=== PATIENT | male | born 1995 | race Caucasian/White ===

== ENCOUNTER 2017-07-14 06:33 | Emergency (ER) | payer MEDICAID ==
[~2017-07-14] VITALS: Ht 180.3 cm; Wt 105.0 kg
[~2017-07-14 06:33] MED LIST: GUAN1TAB22 PO; NO MEDS; PERCT PO
[2017-07-14 06:35] VITALS: BP 147/98
[2017-07-14 06:58] LABS: GLUCOSE,POINT OF CARE 100 MG/DL (70-110)
[2017-07-14] MEDS ORDERED: MECLIZINE HCL 25 MG TABLET PO ONE (07:15)
[2017-07-14] MEDS ORDERED: ACETAMINOPHEN 500 MG TABLET PO ONE (07:15)
[2017-07-14] MEDS ORDERED: ONDANSETRON HCL 4 MG/2 ML VIAL IVP ONE (07:15)
[2017-07-14 07:33] LABS: BASOPHILS % (AUTO) 0.3 % (0.0-2.0); EOSINOPHILS % (AUTO) 0.4 % (1.0-6.0); HEMATOCRIT 44.5 % (41-53); HEMOGLOBIN 14.7 g/dL (13.5-17.5); LYMPHOCYTES # (AUTO) 1.2 K/uL (1.0-4.8); LYMPHOCYTES % (AUTO) 7.7 % (22.0-44.0); MEAN CORPUSCULAR HEMOGLOBIN 25.9 pg (26.0-34.0); MEAN CORPUSCULAR HGB CONC 33.2 G/dL (31.0-37.0); MEAN CORPUSCULAR VOLUME 78 fL (80-100); MONOCYTES # (AUTO) 0.4 K/uL (0.1-1.0); MONOCYTES % (AUTO) 2.6 % (2.0-9.0); NEUTROPHILS # (AUTO) 13.6 K/uL (1.8-7.7); PLATELET COUNT (AUTO) 372 K/uL (150-450); RED BLOOD CELL COUNT(AUTO) 5.69 MIL/uL (4.50-5.90); RED CELL DISTRIBUTION WIDTH 14.7 % (11.5-14.5)
[2017-07-14 07:54] LABS: ANION GAP 9 mmol/L (8-16); CALCIUM, TOTAL 9.6 mg/dL (8.8-10.5); CARBON DIOXIDE 31 mmol/L (22-29); CHLORIDE 100 mmol/L (98-107); CREATININE 0.81 mg/dL (0.60-1.30); GLOMERULAR FILTR. RATE CALC > 60 mL/min (>60); GLUCOSE,RANDOM 108 mg/dL (70-110); POTASSIUM 3.7 mmol/L (3.5-5.1); SODIUM SERUM 140 mmol/L (136-145); UREA NITROGEN, BLOOD 8 mg/dL (7-18)
[2017-07-14 07:59] LABS: ALANINE AMINOTRANSFERASE 45 U/L (12-78); ALBUMIN 4.2 g/dL (3.4-5.0); ALKALINE PHOSPHATASE 94 U/L (46-116); ASPARTATE AMINOTRANSFERASE 16 U/L (15-37); BILIRUBIN,TOTAL 0.3 mg/dL (0.1-1.0); TOTAL PROTEIN, SERUM 8.8 g/dL (6.4-8.2)
== END 2017-07-14 08:56 | disposition home or self-care (01) ==
LOC: EMS 06:34
DX: R11.10 Vomiting, unspecified (principal); R42 Dizziness and giddiness
CPT/HCPCS: 36415; 80053; 82962; 85025; 96374; 99284; J2405

== ENCOUNTER 2018-02-27 10:53 | Inpatient (IN) | payer MEDICAID, OTHER ==
[~2018-02-27] VITALS: Ht 180.3 cm; Wt 89.2 kg
[2018-02-27] MEDS ORDERED: SODIUM CHLORIDE 0.9% 1,000 ML IV ONE (11:54)
[2018-02-27 12:24] LABS: APPEARANCE,URINE CLEAR (CLEAR); BILIRUBIN,URINE NEGATIVE (NEGATIVE); GLUCOSE, URINE (UA) NEGATIVE (NEGATIVE); KETONES,URINE TRACE mg/dL (NEGATIVE); LEUKOCYTE ESTERASE ,URINE NEGATIVE (NEGATIVE); NITRATE,URINE NEGATIVE (NEGATIVE); OCCULT BLOOD,URINE TRACE (NEGATIVE); PROTEIN,URINE NEGATIVE (NEGATIVE); UROBILINOGEN,URINE 0.2 mg/dL (<=1.0)
[2018-02-27 12:27] LABS: BASOPHILS % (AUTO) 0.4 % (0.0-2.0); EOSINOPHILS % (AUTO) 0.4 % (1.0-6.0); HEMATOCRIT 46.1 % (41-53); HEMOGLOBIN 15.4 g/dL (13.5-17.5); LYMPHOCYTES # (AUTO) 0.9 K/uL (1.0-4.8); LYMPHOCYTES % (AUTO) 8.9 % (22.0-44.0); MEAN CORPUSCULAR HEMOGLOBIN 27.6 pg (26.0-34.0); MEAN CORPUSCULAR HGB CONC 33.5 G/dL (31.0-37.0); MEAN CORPUSCULAR VOLUME 82 fL (80-100); MONOCYTES # (AUTO) 0.4 K/uL (0.1-1.0); MONOCYTES % (AUTO) 3.9 % (2.0-9.0); NEUTROPHILS # (AUTO) 8.7 K/uL (1.8-7.7); PLATELET COUNT (AUTO) 330 K/uL (150-450); RED CELL DISTRIBUTION WIDTH 14.9 % (11.5-14.5)
[2018-02-27 12:29] LABS: NEUTROPHILS % (AUTO) 86.4 % (40.0-70.0)
[2018-02-27 12:34] LABS: ANION GAP 10 mmol/L (8-16); CALCIUM, TOTAL 9.3 mg/dL (8.8-10.5); CARBON DIOXIDE 29 mmol/L (22-29); CHLORIDE 101 mmol/L (98-107); GLOMERULAR FILTR. RATE CALC > 60 mL/min (>60); GLUCOSE,RANDOM 102 mg/dL (70-110); SODIUM SERUM 140 mmol/L (136-145); UREA NITROGEN, BLOOD 12 mg/dL (7-18)
[2018-02-27 12:40] LABS: ALANINE AMINOTRANSFERASE 32 U/L (12-78); ALBUMIN 4.2 g/dL (3.4-5.0); ALKALINE PHOSPHATASE 95 U/L (46-116); ASPARTATE AMINOTRANSFERASE 18 U/L (15-37); BILIRUBIN,TOTAL 0.3 mg/dL (0.1-1.0); LIPASE 116 U/L (73-393); TOTAL PROTEIN, SERUM 8.2 g/dL (6.4-8.2)
[2018-02-27 12:49] LABS: BACTERIA,URINE None Seen /HPF (None Seen); RBC,URINE 0-2 /HPF (0-2); SQUAMOUS EPITHELIAL CELL,UR Few /LPF (None Seen); WBC,URINE None Seen /HPF (0-5)
[2018-02-27] MEDS ORDERED: GADOBUTROL 1 MMOL/ML 10 ML VIAL IVP ONE (12:54)
[2018-02-27] MEDS ORDERED: ONDANSETRON HCL 4 MG/2 ML VIAL IVP PRN ×2 (13:45→14:00)
[2018-02-27] MEDS ORDERED: 0.9% SODIUM CHLORIDE 10 ML SYRINGE IVP PRN ×2 (13:45→14:00)
[2018-02-27] MEDS ORDERED: ACETAMINOPHEN 325 MG TABLET PO PRN ×3 (13:45→14:30)
[2018-02-27] MEDS ORDERED: ALBUTEROL SULFATE 2.5 MG/0.5 ML NEB SOLUTION NEB PRN (14:30)
[2018-02-27] MEDS ORDERED: BISACODYL 10 MG RECTAL RECTAL SUPPOSITORY PR PRN (14:30)
[2018-02-27] MEDS ORDERED: DEXTROSE 50%-WATER 25 GM/50 ML SYRINGE IVP PRN (14:30)
[2018-02-27] MEDS ORDERED: MethylPREDNISolone SOD SUCC 125 MG/2 ML VIAL IVP SCH (16:00)
[2018-02-27] MEDS: HEPARIN SODIUM,PORCINE 5,000 UNITS/ML VIAL SQ SCH ×2 (16:10→23:51)
[2018-02-27 16:38] VITALS: BP 122/72
[2018-02-27] MEDS ORDERED: MethylPREDNISolone SOD SUCC 1,000 MG in SODIUM CHLORIDE 0.9% 50 ML IV ONE ×4 (17:30)
[2018-02-27] MEDS ORDERED: SODIUM CHLORIDE 0.9% 500 ML IV ONE (18:15)
[2018-02-27] MEDS: MAGNESIUM HYDROXIDE SUSPENSION 30 ML UDCUP PO PRN (18:30)
[2018-02-27 18:39] LABS: GLUCOMETER DEV NAME(LOC) 6N.1; GLUCOSE,POINT OF CARE 99 MG/DL (70-110)
[2018-02-27 19:20] VITALS: BP 137/71
[2018-02-27] MEDS: DOCUSATE SODIUM 100 MG CAPSULE PO SCH (20:20)
[2018-02-27] MEDS: INSULIN LISPRO 100 UNITS/ML SQ PRN (20:23)
[2018-02-27 23:30] VITALS: BP 114/64
[2018-02-27 23:38] LABS: GLUCOMETER DEV NAME(LOC) 6N.1; GLUCOSE,POINT OF CARE 236 MG/DL (70-110)
[2018-02-28 05:49] LABS: GLUCOMETER DEV NAME(LOC) 6N.1; GLUCOSE,POINT OF CARE 120 MG/DL (70-110)
[2018-02-28 07:51] VITALS: BP 121/65
[2018-02-28] MEDS: HEPARIN SODIUM,PORCINE 5,000 UNITS/ML VIAL SQ SCH ×3 (09:16→23:38)
[2018-02-28] MEDS: DOCUSATE SODIUM 100 MG CAPSULE PO SCH ×2 (09:16→20:31)
[2018-02-28 11:59] LABS: GLUCOMETER DEV NAME(LOC) 6N.1; GLUCOSE,POINT OF CARE 143 MG/DL (70-110)
[2018-02-28] MEDS: INSULIN LISPRO 100 UNITS/ML SQ PRN ×2 (12:03→20:31)
[2018-02-28] MEDS ORDERED: MethylPREDNISolone SOD SUCC 1,000 MG in SODIUM CHLORIDE 0.9% 50 ML IV ONE (15:00)
[2018-02-28] MEDS ORDERED: SODIUM PHOS/SODIUM BIPHOS 133 ML ENEMA PR PRN (15:30)
[2018-02-28] MEDS ORDERED: MAGNESIUM CITRATE 300 ML ORAL SOLUTION PO ONE (16:15)
[2018-02-28 18:03] LABS: GLUCOMETER DEV NAME(LOC) 6N.1; GLUCOSE,POINT OF CARE 123 MG/DL (70-110)
[2018-02-28 19:29] VITALS: BP 119/66
[2018-02-28] MEDS: MINERAL OIL 133 ML ENEMA PR SCH (20:31)
[2018-02-28 20:59] LABS: GLUCOMETER DEV NAME(LOC) 6N.2; GLUCOSE,POINT OF CARE 162 MG/DL (70-110)
[2018-03-01] VITALS (7 sets, daily range): BP systolic 107–116; BP diastolic 60–71
[2018-03-01 05:19] LABS: GLUCOMETER DEV NAME(LOC) 6N.2; GLUCOSE,POINT OF CARE 138 MG/DL (70-110)
[2018-03-01] MEDS: MINERAL OIL 133 ML ENEMA PR SCH ×2 (08:07→20:31)
[2018-03-01] MEDS: DOCUSATE SODIUM 100 MG CAPSULE PO SCH ×2 (08:39→20:31)
[2018-03-01] MEDS: HEPARIN SODIUM,PORCINE 5,000 UNITS/ML VIAL SQ SCH ×3 (08:40→23:46)
[2018-03-01] MEDS ORDERED: SODIUM CHLORIDE 0.9% 500 ML IV ONE (11:40)
[2018-03-01] MEDS: INSULIN LISPRO 100 UNITS/ML SQ PRN ×3 (11:47→20:22)
[2018-03-01] MEDS ORDERED: MethylPREDNISolone SOD SUCC 1,000 MG in SODIUM CHLORIDE 0.9% 50 ML IV ONE (13:00)
[2018-03-01 13:54] LABS: GLUCOMETER DEV NAME(LOC) 6N.2; GLUCOSE,POINT OF CARE 94 MG/DL (70-110)
[2018-03-01 22:29] LABS: GLUCOMETER DEV NAME(LOC) 6N.1; GLUCOSE,POINT OF CARE 150 MG/DL (70-110)
[2018-03-02 03:39] VITALS: BP 110/63
[2018-03-02 07:31] VITALS: BP 110/65
[2018-03-02] MEDS: DOCUSATE SODIUM 100 MG CAPSULE PO SCH ×2 (08:11→20:26)
[2018-03-02] MEDS: HEPARIN SODIUM,PORCINE 5,000 UNITS/ML VIAL SQ SCH ×2 (08:11→15:41)
[2018-03-02] MEDS: MINERAL OIL 133 ML ENEMA PR SCH ×2 (09:00→20:27)
[2018-03-02 11:24] VITALS: BP 124/70
[2018-03-02] MEDS: INSULIN LISPRO 100 UNITS/ML SQ PRN ×2 (11:51→17:17)
[2018-03-02 11:59] LABS: GLUCOMETER DEV NAME(LOC) 6N.2; GLUCOSE,POINT OF CARE 116 MG/DL (70-110)
[2018-03-02 11:59] LABS: GLUCOMETER DEV NAME(LOC) 6N.2; GLUCOSE,POINT OF CARE 115 MG/DL (70-110)
[2018-03-02 15:34] LABS: GLUCOMETER DEV NAME(LOC) 6N.1; GLUCOSE,POINT OF CARE 90 MG/DL (70-110)
[2018-03-02 15:37] VITALS: BP 102/54
[2018-03-02] MEDS ORDERED: PRED20 PO (16:01)
[2018-03-02] MEDS ORDERED: LACT30L PO (16:04)
[2018-03-02 20:05] VITALS: BP 108/65
[2018-03-02 20:14] LABS: GLUCOMETER DEV NAME(LOC) 6N.1; GLUCOSE,POINT OF CARE 88 MG/DL (70-110)
[2018-03-02] MEDS: MAGNESIUM HYDROXIDE SUSPENSION 30 ML UDCUP PO PRN (20:26)
[2018-03-02 23:20] VITALS: BP 97/59
[2018-03-03 00:09] LABS: GLUCOMETER DEV NAME(LOC) 6N.1; GLUCOSE,POINT OF CARE 118 MG/DL (70-110)
[2018-03-03] MEDS: HEPARIN SODIUM,PORCINE 5,000 UNITS/ML VIAL SQ SCH ×4 (00:39→23:51)
[2018-03-03 05:45] VITALS: BP 100/56
[2018-03-03 07:30] VITALS: BP 96/55
[2018-03-03] MEDS: DOCUSATE SODIUM 100 MG CAPSULE PO SCH ×2 (08:47→20:45)
[2018-03-03] MEDS: MINERAL OIL 133 ML ENEMA PR SCH ×2 (08:47→20:45)
[2018-03-03 09:34] LABS: GLUCOMETER DEV NAME(LOC) 6N.1; GLUCOSE,POINT OF CARE 92 MG/DL (70-110)
[2018-03-03 11:34] VITALS: BP 153/71
[2018-03-03 12:39] LABS: GLUCOMETER DEV NAME(LOC) 6N.1; GLUCOSE,POINT OF CARE 115 MG/DL (70-110)
[2018-03-03 17:30] LABS: GLUCOMETER DEV NAME(LOC) 6N.2; GLUCOSE,POINT OF CARE 77 MG/DL (70-110)
[2018-03-03 19:39] VITALS: BP 109/59
[2018-03-03 22:29] LABS: GLUCOMETER DEV NAME(LOC) 6N.1; GLUCOSE,POINT OF CARE 117 MG/DL (70-110)
[2018-03-03 23:55] VITALS: BP 102/54
[2018-03-04 04:40] VITALS: BP 118/57
[2018-03-04 06:12] LABS: GLUCOMETER DEV NAME(LOC) 6N.2; GLUCOSE,POINT OF CARE 73 MG/DL (70-110)
[2018-03-04 07:59] VITALS: BP 103/54
[2018-03-04] MEDS: DOCUSATE SODIUM 100 MG CAPSULE PO SCH ×2 (08:40→21:03)
[2018-03-04] MEDS: MULTIVITAMINS WITH MINERALS, THERAPEUTIC TABLET PO SCH (08:40)
[2018-03-04] MEDS: PredniSONE 20 MG TABLET PO SCH (08:40)
[2018-03-04] MEDS: HEPARIN SODIUM,PORCINE 5,000 UNITS/ML VIAL SQ SCH ×2 (08:40→16:30)
[2018-03-04] MEDS: MINERAL OIL 133 ML ENEMA PR SCH ×2 (08:56→21:03)
[2018-03-04 11:38] VITALS: BP 103/59
[2018-03-04 11:49] LABS: GLUCOMETER DEV NAME(LOC) 6N.2; GLUCOSE,POINT OF CARE 123 MG/DL (70-110)
[2018-03-04 15:39] VITALS: BP 113/63
[2018-03-04] MEDS: MAGNESIUM HYDROXIDE SUSPENSION 30 ML UDCUP PO PRN (16:31)
[2018-03-04 19:49] VITALS: BP 105/58
[2018-03-04 23:13] VITALS: BP 103/56
[2018-03-05 03:45] VITALS: BP 106/58
[2018-03-05 07:51] VITALS: BP 108/64
[2018-03-05] MEDS: HEPARIN SODIUM,PORCINE 5,000 UNITS/ML VIAL SQ SCH ×2 (08:29)
[2018-03-05] MEDS: MULTIVITAMINS WITH MINERALS, THERAPEUTIC TABLET PO SCH (08:29)
[2018-03-05] MEDS: MINERAL OIL 133 ML ENEMA PR SCH (08:29)
[2018-03-05] MEDS: DOCUSATE SODIUM 100 MG CAPSULE PO SCH (08:30)
[2018-03-05] MEDS: PredniSONE 20 MG TABLET PO SCH (08:30)
[2018-03-05 11:48] VITALS: BP 122/93
== END 2018-03-05 15:05 | disposition home or self-care (01) | DRG 43 ==
LOC: EMS 10:55 → 6N 14:57
PROVIDERS: ADMIT Internal Medicine; ATTEND Internal Medicine
DX: G35 Multiple sclerosis (principal); G93.40 Encephalopathy, unspecified; F95.2 Tourette's disorder; K59.00 Constipation, unspecified; G81.91 Hemiplegia, unspecified affecting right dominant side; K82.8 Other specified diseases of gallbladder; R53.81 Other malaise; Z90.49 Acquired absence of other specified parts of digestive tract; Z23 Encounter for immunization
CPT/HCPCS: 70553; 72156; 72157; 72158; 83036; 90686; 96361; 96374; 97110; 97116; 97163; 97166; 97530; 97535; A9585; G0378; J1644; J2930; J7040; J7050

== ENCOUNTER 2018-07-25 02:21 | Emergency (ER) | payer OTHER ==
[~2018-07-25] VITALS: Ht 180.3 cm; Wt 93.6 kg
[~2018-07-25 02:21] MED LIST changes: -GUAN1TAB22 PO; +LACT30L PO; -NO MEDS; -PERCT PO; +PRED20 PO
[2018-07-25] MEDS ORDERED: OCRE300V IV (02:32)
[2018-07-25] MEDS ORDERED: POLY238P2 PO (02:32)
[2018-07-25] MEDS ORDERED: CHOL2000 PO (02:32)
[2018-07-25] MEDS ORDERED: LORazepam 2 MG TABLET PO ONE (03:15)
[2018-07-25] MEDS ORDERED: MORPHINE SULFATE 2 MG/ML SYRINGE IVP ONE (04:00)
[2018-07-25 04:24] LABS: BASOPHILS % (AUTO) 0.3 % (0.0-2.0); EOSINOPHILS % (AUTO) 0.7 % (1.0-6.0); HEMATOCRIT 41.3 % (41-53); HEMOGLOBIN 13.4 g/dL (13.5-17.5); LYMPHOCYTES % (AUTO) 6.5 % (22.0-44.0); MEAN CORPUSCULAR HEMOGLOBIN 27.7 pg (26.0-34.0); MEAN CORPUSCULAR HGB CONC 32.3 G/dL (31.0-37.0); MEAN CORPUSCULAR VOLUME 86 fL (80-100); MONOCYTES % (AUTO) 6.4 % (2.0-9.0); NEUTROPHILS # (AUTO) 13.2 K/uL (1.8-7.7); PLATELET COUNT (AUTO) 279 K/uL (150-450); RED BLOOD CELL COUNT(AUTO) 4.83 MIL/uL (4.50-5.90); RED CELL DISTRIBUTION WIDTH 15.2 % (11.5-14.5)
[2018-07-25 04:26] LABS: NEUTROPHILS % (AUTO) 86.1 % (40.0-70.0)
[2018-07-25 04:35] LABS: ANION GAP 12 mmol/L (8-16); CALCIUM, TOTAL 9.9 mg/dL (8.8-10.5); CARBON DIOXIDE 27 mmol/L (22-29); CHLORIDE 104 mmol/L (98-107); CREATININE 0.81 mg/dL (0.60-1.30); GLOMERULAR FILTR. RATE CALC > 60 mL/min (>60); GLUCOSE,RANDOM 99 mg/dL (70-110); POTASSIUM 3.7 mmol/L (3.5-5.1); SODIUM SERUM 143 mmol/L (136-145); UREA NITROGEN, BLOOD 8 mg/dL (7-18)
[2018-07-25 04:42] LABS: ALANINE AMINOTRANSFERASE 41 U/L (12-78); ALBUMIN 5.7 g/dL (3.4-5.0); ALKALINE PHOSPHATASE 33 U/L (46-116); ASPARTATE AMINOTRANSFERASE 39 U/L (15-37); BILIRUBIN,TOTAL 0.7 mg/dL (0.1-1.0); TOTAL PROTEIN, SERUM 6.9 g/dL (6.4-8.2)
[2018-07-25 05:15] VITALS: BP 112/61
== END 2018-07-25 05:32 | disposition home or self-care (01) ==
LOC: EMS 02:23
DX: R07.9 Chest pain, unspecified (principal); R06.02 Shortness of breath; Z90.49 Acquired absence of other specified parts of digestive tract; Z79.899 Other long term (current) drug therapy
CPT/HCPCS: 36415; 71045; 80053; 84484; 85025; 85379; 93005; 96374; 99285; J2270

== ENCOUNTER 2018-12-14 00:40 | Inpatient (IN) | payer OTHER ==
[~2018-12-14] VITALS: Ht 177.8 cm; Wt 99.0 kg
[~2018-12-14 00:40] MED LIST changes: +CHOL2000 PO; -LACT30L PO; +OCRE300V IV; +POLY238P2 PO; -PRED20 PO
[2018-12-14 01:41] LABS: APPEARANCE,URINE CLEAR (CLEAR); BILIRUBIN,URINE NEGATIVE (NEGATIVE); GLUCOSE, URINE (UA) NEGATIVE (NEGATIVE); KETONES,URINE NEGATIVE (NEGATIVE); LEUKOCYTE ESTERASE ,URINE NEGATIVE (NEGATIVE); NITRATE,URINE NEGATIVE (NEGATIVE); OCCULT BLOOD,URINE NEGATIVE (NEGATIVE); PROTEIN,URINE TRACE (NEGATIVE); UROBILINOGEN,URINE 0.2 mg/dL (<=1.0)
[2018-12-14 01:42] LABS: BASOPHILS % (AUTO) 0.6 % (0.0-2.0); EOSINOPHILS % (AUTO) 1.8 % (1.0-6.0); HEMATOCRIT 41.8 % (41-53); HEMOGLOBIN 13.8 g/dL (13.5-17.5); LYMPHOCYTES # (AUTO) 1.7 K/uL (1.0-4.8); LYMPHOCYTES % (AUTO) 18.4 % (22.0-44.0); MEAN CORPUSCULAR HEMOGLOBIN 28.7 pg (26.0-34.0); MEAN CORPUSCULAR HGB CONC 32.9 G/dL (31.0-37.0); MEAN CORPUSCULAR VOLUME 87 fL (80-100); MONOCYTES # (AUTO) 0.4 K/uL (0.1-1.0); MONOCYTES % (AUTO) 4.8 % (2.0-9.0); NEUTROPHILS # (AUTO) 6.9 K/uL (1.8-7.7); NEUTROPHILS % (AUTO) 74.4 % (40.0-70.0); PLATELET COUNT (AUTO) 290 K/uL (150-450); RED CELL DISTRIBUTION WIDTH 13.6 % (11.5-14.5)
[2018-12-14 01:47] LABS: AMPHET/METH SCREEN,URINE NEGATIVE (NEGATIVE); BARBITURATE SCREEN, URINE NEGATIVE (NEGATIVE); BENZODIAZEPINES SCREEN,URINE NEGATIVE (NEGATIVE); CANNABINOID SCREEN,URINE NEGATIVE (NEGATIVE); COCAINE SCREEN,URINE NEGATIVE (NEGATIVE); METHADONE SCREEN, URINE NEGATIVE (NEGATIVE); OPIATE SCREEN,URINE NEGATIVE (NEGATIVE); PHENCYCLIDINE SCREEN,URINE NEGATIVE (NEGATIVE)
[2018-12-14 01:48] LABS: ANION GAP 13 mmol/L (8-16); CALCIUM, TOTAL 9.3 mg/dL (8.8-10.5); CARBON DIOXIDE 25 mmol/L (22-29); CHLORIDE 104 mmol/L (98-107); CREATININE 0.88 mg/dL (0.60-1.30); GLOMERULAR FILTR. RATE CALC > 60 mL/min (>60); GLUCOSE,RANDOM 104 mg/dL (70-110); SODIUM SERUM 142 mmol/L (136-145); UREA NITROGEN, BLOOD 9 mg/dL (7-18)
[2018-12-14 01:54] LABS: ALANINE AMINOTRANSFERASE 16 U/L (12-78); ALBUMIN 5.6 g/dL (3.4-5.0); ALKALINE PHOSPHATASE 25 U/L (46-116); ASPARTATE AMINOTRANSFERASE 9 U/L (15-37); BILIRUBIN,TOTAL 0.3 mg/dL (0.1-1.0); TOTAL PROTEIN, SERUM 6.4 g/dL (6.4-8.2)
[2018-12-14] MEDS ORDERED: ACETAMINOPHEN 325 MG TABLET PO PRN ×2 (04:15→09:30)
[2018-12-14] MEDS ORDERED: ONDANSETRON HCL 4 MG/2 ML VIAL IVP PRN ×2 (04:15→09:30)
[2018-12-14] MEDS ORDERED: 0.9% SODIUM CHLORIDE 10 ML SYRINGE IVP PRN (04:15)
[2018-12-14 05:07] VITALS: BP 125/83
[2018-12-14 08:08] VITALS: BP 109/58
[2018-12-14] MEDS ORDERED: MAGNESIUM HYDROXIDE SUSPENSION 30 ML UDCUP PO PRN (09:30)
[2018-12-14] MEDS: SODIUM CHLORIDE 0.9% 1,000 ML IV SCH ×2 (10:47→19:30)
[2018-12-14] MEDS ORDERED: GADOBUTROL 1 MMOL/ML 10 ML VIAL IVP ONE (11:15)
[2018-12-14 11:31] VITALS: BP 122/72
[2018-12-14 16:51] VITALS: BP 108/49
[2018-12-14 20:44] VITALS: BP 109/51
[2018-12-14] MEDS: DOCUSATE SODIUM 100 MG CAPSULE PO SCH (21:00)
[2018-12-15 00:42] VITALS: BP 102/54
[2018-12-15 06:01] VITALS: BP 111/50
[2018-12-15 07:58] VITALS: BP 110/59
[2018-12-15] MEDS: DOCUSATE SODIUM 100 MG CAPSULE PO SCH (08:00)
[2018-12-15] MEDS: SODIUM CHLORIDE 0.9% 1,000 ML IV SCH (08:03)
[2018-12-15 11:24] VITALS: BP 109/60
== END 2018-12-15 14:00 | disposition home or self-care (01) | DRG 53 ==
LOC: EMS 00:41 → 6N 04:00
PROVIDERS: ADMIT Internal Medicine; ATTEND Internal Medicine
DX: G40.901 Epilepsy, unspecified, not intractable, with status epilepticus (principal); F95.2 Tourette's disorder; G35 Multiple sclerosis; E66.9 Obesity, unspecified; Z68.31 Body mass index [BMI] 31.0-31.9, adult; Z90.49 Acquired absence of other specified parts of digestive tract
CPT/HCPCS: 70450; 70553; 83605; 93005; 95816; A9585; G0480; J2405; J7030

== ENCOUNTER 2019-09-23 00:36 | Emergency (ER) | payer OTHER ==
[~2019-09-23] VITALS: Ht 180.3 cm; Wt 100.0 kg
[2019-09-23 01:41] LABS: GLUCOSE,POINT OF CARE 89 MG/DL (70-110)
[2019-09-23 02:15] LABS: BASOPHILS % (AUTO) 0.5 % (0.0-2.0); EOSINOPHILS % (AUTO) 0.6 % (1.0-6.0); HEMATOCRIT 43.1 % (41-53); HEMOGLOBIN 14.1 g/dL (13.5-17.5); LYMPHOCYTES # (AUTO) 1.2 K/uL (1.0-4.8); MEAN CORPUSCULAR HEMOGLOBIN 27.1 pg (26.0-34.0); MEAN CORPUSCULAR HGB CONC 32.6 G/dL (31.0-37.0); MEAN CORPUSCULAR VOLUME 83 fL (80-100); MONOCYTES # (AUTO) 0.8 K/uL (0.1-1.0); MONOCYTES % (AUTO) 4.2 % (2.0-9.0); NEUTROPHILS # (AUTO) 17.4 K/uL (1.8-7.7); PLATELET COUNT (AUTO) 314 K/uL (150-450); RED BLOOD CELL COUNT(AUTO) 5.19 MIL/uL (4.50-5.90); RED CELL DISTRIBUTION WIDTH 13.8 % (11.5-14.5)
[2019-09-23 02:25] LABS: NEUTROPHILS % (AUTO) 88.7 % (40.0-70.0)
[2019-09-23 02:26] LABS: ANION GAP 8 mmol/L (8-16); CALCIUM, TOTAL 9.3 mg/dL (8.8-10.5); CARBON DIOXIDE 31 mmol/L (22-29); CHLORIDE 102 mmol/L (98-107); GLOMERULAR FILTR. RATE CALC > 60 mL/min (>60); GLUCOSE,RANDOM 110 mg/dL (70-110); POTASSIUM 3.4 mmol/L (3.5-5.1); SODIUM SERUM 141 mmol/L (136-145); UREA NITROGEN, BLOOD 13 mg/dL (7-18)
[2019-09-23 02:31] LABS: ALANINE AMINOTRANSFERASE 31 U/L (12-78); ALBUMIN 4.7 g/dL (3.4-5.0); ALKALINE PHOSPHATASE 66 U/L (46-116); ASPARTATE AMINOTRANSFERASE 15 U/L (15-37); BILIRUBIN,TOTAL 0.2 mg/dL (0.1-1.0); TOTAL PROTEIN, SERUM 7.1 g/dL (6.4-8.2)
[2019-09-23 03:04] LABS: APPEARANCE,URINE CLEAR (CLEAR); BILIRUBIN,URINE NEGATIVE (NEGATIVE); GLUCOSE, URINE (UA) NEGATIVE (NEGATIVE); KETONES,URINE NEGATIVE (NEGATIVE); LEUKOCYTE ESTERASE ,URINE NEGATIVE (NEGATIVE); NITRATE,URINE NEGATIVE (NEGATIVE); OCCULT BLOOD,URINE NEGATIVE (NEGATIVE); PH,URINE 5.5 (5.0-8.0); PROTEIN,URINE NEGATIVE (NEGATIVE); UROBILINOGEN,URINE 0.2 mg/dL (<=1.0)
[2019-09-23 03:08] LABS: BACTERIA,URINE None Seen /HPF (None Seen); RBC,URINE None Seen /HPF (0-2); SQUAMOUS EPITHELIAL CELL,UR Few /LPF (None Seen); WBC,URINE None Seen /HPF (0-5)
[2019-09-23 03:14] LABS: AMPHET/METH SCREEN,URINE NEGATIVE (NEGATIVE); BARBITURATE SCREEN, URINE NEGATIVE (NEGATIVE); BENZODIAZEPINES SCREEN,URINE NEGATIVE (NEGATIVE); CANNABINOID SCREEN,URINE NEGATIVE (NEGATIVE); COCAINE SCREEN,URINE NEGATIVE (NEGATIVE); METHADONE SCREEN, URINE NEGATIVE (NEGATIVE); OPIATE SCREEN,URINE NEGATIVE (NEGATIVE); PHENCYCLIDINE SCREEN,URINE NEGATIVE (NEGATIVE)
[2019-09-23 04:50] VITALS: BP 113/76
== END 2019-09-23 04:53 | disposition home or self-care (01) ==
LOC: EMS 00:38
DX: Z03.818 Encounter for observation for suspected exposure to other biological agents ruled out (principal); G35 Multiple sclerosis; R56.9 Unspecified convulsions
CPT/HCPCS: 36415; 71045; 80053; 80307; 81001; 82962; 83605; 85025; 99284; G0480; U0003

== ENCOUNTER 2019-11-14 19:04 | Emergency (ER) | payer OTHER ==
[~2019-11-14] VITALS: Ht 180.3 cm; Wt 101.1 kg
[2019-11-14] MEDS ORDERED: DIVA-85 PO (19:15)
[2019-11-14 20:29] LABS: GLUCOSE,POINT OF CARE 104 MG/DL (70-110)
[2019-11-14 20:44] LABS: ANION GAP 11 mmol/L (8-16); CALCIUM, TOTAL 9.6 mg/dL (8.8-10.5); CARBON DIOXIDE 25 mmol/L (22-29); CHLORIDE 100 mmol/L (98-107); CREATININE 0.99 mg/dL (0.60-1.30); GLOMERULAR FILTR. RATE CALC > 60 mL/min (>60); GLUCOSE,RANDOM 96 mg/dL (70-110); POTASSIUM 3.7 mmol/L (3.5-5.1); SODIUM SERUM 136 mmol/L (136-145); UREA NITROGEN, BLOOD 7 mg/dL (7-18)
[2019-11-14 20:51] LABS: ALANINE AMINOTRANSFERASE 26 U/L (12-78); ALBUMIN 4.9 g/dL (3.4-5.0); ALKALINE PHOSPHATASE 48 U/L (46-116); ASPARTATE AMINOTRANSFERASE 15 U/L (15-37); BILIRUBIN,TOTAL 0.2 mg/dL (0.1-1.0); PHENYTOIN (DILANTIN) 0.6 mcg/mL (10.0-20.0); TOTAL PROTEIN, SERUM 6.9 g/dL (6.4-8.2)
[2019-11-14 20:52] LABS: VALPROIC ACID < 3 mcg/mL (50-100)
[2019-11-14 20:56] LABS: BASOPHILS % (AUTO) 0.6 % (0.0-2.0); EOSINOPHILS % (AUTO) 1.8 % (1.0-6.0); HEMATOCRIT 43.1 % (41-53); HEMOGLOBIN 13.7 g/dL (13.5-17.5); LYMPHOCYTES # (AUTO) 1.7 K/uL (1.0-4.8); LYMPHOCYTES % (AUTO) 15.6 % (22.0-44.0); MEAN CORPUSCULAR HEMOGLOBIN 26.6 pg (26.0-34.0); MEAN CORPUSCULAR HGB CONC 31.8 G/dL (31.0-37.0); MEAN CORPUSCULAR VOLUME 84 fL (80-100); MONOCYTES # (AUTO) 0.7 K/uL (0.1-1.0); MONOCYTES % (AUTO) 6.6 % (2.0-9.0); NEUTROPHILS # (AUTO) 8.1 K/uL (1.8-7.7); NEUTROPHILS % (AUTO) 75.4 % (40.0-70.0); PLATELET COUNT (AUTO) 309 K/uL (150-450); RED BLOOD CELL COUNT(AUTO) 5.16 MIL/uL (4.50-5.90); RED CELL DISTRIBUTION WIDTH 14.4 % (11.5-14.5)
[2019-11-14] MEDS ORDERED: VALPROATE SODIUM 1,000 MG in DEXTROSE 5%-WATER 100 ML IV ONE (21:15)
[2019-11-14] MEDS ORDERED: SODIUM CHLORIDE 0.9% 1,000 ML IV ONE (22:45)
[2019-11-14] MEDS ORDERED: ACETAMINOPHEN 500 MG TABLET PO ONE (22:45)
[2019-11-14 23:29] VITALS: BP 120/83
== END 2019-11-14 23:46 | disposition home or self-care (01) ==
LOC: EMS 19:04
DX: G40.909 Epilepsy, unspecified, not intractable, without status epilepticus (principal); R41.82 Altered mental status, unspecified; R00.0 Tachycardia, unspecified
CPT/HCPCS: 36415; 70450; 80053; 80164; 80185; 82962; 85025; 96361; 96365; 99284; G0480; J3490; J7030; J7060

== ENCOUNTER 2020-02-12 23:04 | Emergency (ER) | payer OTHER ==
[~2020-02-12] VITALS: Ht 180.3 cm; Wt 96.8 kg
[~2020-02-12 23:04] MED LIST changes: -CHOL2000 PO; +DIVA-85 PO; -OCRE300V IV; -POLY238P2 PO
[2020-02-12] MEDS ORDERED: LevETIRAcetam 1,000 MG in DEXTROSE 5%-WATER 100 ML IV ONE (23:30)
[2020-02-12 23:40] LABS: EOSINOPHILS % (AUTO) 1.3 % (1.0-6.0); HEMATOCRIT 42.9 % (41-53); HEMOGLOBIN 14.3 g/dL (13.5-17.5); LYMPHOCYTES # (AUTO) 3.1 K/uL (1.0-4.8); LYMPHOCYTES % (AUTO) 28.6 % (22.0-44.0); MEAN CORPUSCULAR HGB CONC 33.5 G/dL (31.0-37.0); MEAN CORPUSCULAR VOLUME 84 fL (80-100); MONOCYTES # (AUTO) 0.7 K/uL (0.1-1.0); MONOCYTES % (AUTO) 6.5 % (2.0-9.0); NEUTROPHILS # (AUTO) 6.9 K/uL (1.8-7.7); NEUTROPHILS % (AUTO) 62.6 % (40.0-70.0); PLATELET COUNT (AUTO) 311 K/uL (150-450); RED BLOOD CELL COUNT(AUTO) 5.13 MIL/uL (4.50-5.90); RED CELL DISTRIBUTION WIDTH 14.1 % (11.5-14.5)
[2020-02-13 00:09] LABS: ALANINE AMINOTRANSFERASE 45 U/L (12-78); ALBUMIN 4.5 g/dL (3.4-5.0); ALKALINE PHOSPHATASE 72 U/L (46-116); ANION GAP 13 mmol/L (8-16); ASPARTATE AMINOTRANSFERASE 21 U/L (15-37); BILIRUBIN,TOTAL 0.2 mg/dL (0.1-1.0); CHLORIDE 103 mmol/L (98-107); CREATININE 0.96 mg/dL (0.60-1.30); GLOMERULAR FILTR. RATE CALC > 60 mL/min (>60); GLUCOSE,RANDOM 111 mg/dL (70-110); POTASSIUM 3.6 mmol/L (3.5-5.1); SODIUM SERUM 143 mmol/L (136-145); UREA NITROGEN, BLOOD 11 mg/dL (7-18); VALPROIC ACID 3 mcg/mL (50-100)
[2020-02-13 00:15] LABS: CARBON DIOXIDE 27 mmol/L (22-29)
[2020-02-13] MEDS ORDERED: ACETAMINOPHEN 325 MG TABLET PO ONE (00:30)
[2020-02-13 01:25] VITALS: BP 120/80
== END 2020-02-13 01:50 | disposition home or self-care (01) ==
LOC: EMS 23:05
DX: G40.909 Epilepsy, unspecified, not intractable, without status epilepticus (principal); Z79.899 Other long term (current) drug therapy
CPT/HCPCS: 36415; 80053; 80164; 82962; 85025; 96365; 99284; G0480; J0712; J7060

== ENCOUNTER 2022-09-16 00:09 | Emergency (ER) | payer MEDICARE, OTHER ==
[~2022-09-16] VITALS: Ht 177.8 cm; Wt 92.0 kg
[2022-09-16 00:16] VITALS: TEMP 98.1
[2022-09-16] MEDS ORDERED: LIDOCAINE 5% TRANSDERMAL PATCH TD ONE (01:15)
[2022-09-16] MEDS ORDERED: CYCLOBENZAPRINE HCL 10 MG TABLET PO ONE (01:15)
[2022-09-16] MEDS ORDERED: KETOROLAC TROMETHAMINE 30 MG/ML VIAL IM ONE (01:15)
[2022-09-16 01:35] LABS: BASOPHILS % (AUTO) 0.7 % (0.0-2.0); HEMOGLOBIN 14.1 g/dL (13.5-17.5); LYMPHOCYTES # (AUTO) 1.5 K/uL (1.0-4.8); LYMPHOCYTES % (AUTO) 14.9 % (22.0-44.0); MEAN CORPUSCULAR HEMOGLOBIN 27.2 pg (26.0-34.0); MEAN CORPUSCULAR HGB CONC 32.9 G/dL (31.0-37.0); MEAN CORPUSCULAR VOLUME 83 fL (80-100); MONOCYTES # (AUTO) 0.7 K/uL (0.1-1.0); MONOCYTES % (AUTO) 7.6 % (2.0-9.0); NEUTROPHILS # (AUTO) 7.4 K/uL (1.8-7.7); NEUTROPHILS % (AUTO) 75.8 % (40.0-70.0); PLATELET COUNT (AUTO) 257 K/uL (150-450); RED CELL DISTRIBUTION WIDTH 14.4 % (11.5-14.5)
[2022-09-16 01:44] LABS: ANION GAP 7 mmol/L (8-16); CALCIUM, TOTAL 9.5 mg/dL (8.8-10.5); CARBON DIOXIDE 32 mmol/L (22-29); CHLORIDE 103 mmol/L (98-107); CREATININE 0.74 mg/dL (0.60-1.30); GLOMERULAR FILTR. RATE CALC > 60 mL/min (>60); GLUCOSE,RANDOM 107 mg/dL (70-110); POTASSIUM 4.2 mmol/L (3.5-5.1); SODIUM SERUM 142 mmol/L (136-145)
[2022-09-16 01:50] LABS: ALANINE AMINOTRANSFERASE 410 U/L (12-78); ALKALINE PHOSPHATASE 103 U/L (46-116); ASPARTATE AMINOTRANSFERASE 502 U/L (15-37); BILIRUBIN,TOTAL 0.7 mg/dL (0.1-1.0); LIPASE 105 U/L (73-393); TOTAL PROTEIN, SERUM 6.7 g/dL (6.4-8.2)
[2022-09-16 02:12] LABS: APPEARANCE,URINE CLEAR (CLEAR); BILIRUBIN,URINE NEGATIVE (NEGATIVE); GLUCOSE, URINE (UA) NEGATIVE (NEGATIVE); KETONES,URINE NEGATIVE (NEGATIVE); LEUKOCYTE ESTERASE ,URINE NEGATIVE (NEGATIVE); NITRATE,URINE NEGATIVE (NEGATIVE); OCCULT BLOOD,URINE NEGATIVE (NEGATIVE); PH,URINE 7.5 (5.0-8.0); PROTEIN,URINE NEGATIVE (NEGATIVE); SPECIFIC GRAVITIY, URINE 1.012 (1.003-1.030); UROBILINOGEN,URINE <=1.0 mg/dL (<=1.0)
[2022-09-16] MEDS ORDERED: IBUP-1492 PO (05:39)
[2022-09-16] MEDS ORDERED: CYCL-448 PO (05:39)
[2022-09-16] MEDS ORDERED: LIDO700A15 TP (05:39)
[2022-09-16 05:57] VITALS: BP 113/63; PULSE 64; RESP 16
== END 2022-09-16 07:37 | disposition home or self-care (01) ==
LOC: EMS 00:10
DX: M54.6 Pain in thoracic spine (principal); R10.13 Epigastric pain; R07.89 Other chest pain; R74.01 Elevation of levels of liver transaminase levels; F95.2 Tourette's disorder; Z90.49 Acquired absence of other specified parts of digestive tract; Z98.890 Other specified postprocedural states
CPT/HCPCS: 99285; 76705; 71045; 80053; 81003; 83690; 84484; 85025; 36415; 93005; 96372; J1885